=== PATIENT | female | born 1955 | race African-American/Black ===

== ENCOUNTER 2024-06-11 01:21 | Inpatient (IN) | payer OTHER, MEDICARE ==
[~2024-06-11] VITALS: Ht 167.6 cm; Wt 139.8 kg
[2024-06-11] VITALS (11 sets, daily range): BP systolic 105–157; BP diastolic 58–67; PULSE 61–99; RESP 12–24; TEMP 98.8–98.9; O2SAT 96–100
[~2024-06-11 01:21] MED LIST: ENAL20TA93; TRIA75TA11
--- NOTE | 2024-06-11 01:37 | ED.PDOC ---
History of Present Illness HPI Comments 68-year-old female with PMHx COPD brought in by EMS presents with a chief complaint of generalized weakness, fatigue, and shortness of breath at rest. Per EMS, family states that they believed that patient was unresponsive and gave her 0.5mg Narcan. Patient reports that she was just sleeping and did not want to be bothered. Patient also mentions that family wanted to "get rid of her and called 911". According to EMS, family reports that they felt patient was not at baseline and was unresponsive. Patient is A/Ox4. Patient is SOB but reports that she is at her baseline currently. 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 Hx Family History Family History: Reviewed,noncontributory to illness Social History Smoker: Non-Smoker Alcohol: Denies ETOH Use Drugs: Denies Drug Use Lives In: Home Constitutional: reports: fatigue, weakness; denies: chills, diaphoresis, fever, malaise, sweats, others EENTM: denies: blurred vision, double vision, ear bleeding, ear discharge, ear drainage, ear pain, ear ringing, eye pain, eye redness, hearing loss, mouth pain, mouth swelling, nasal discharge, nose bleeding, nose congestion, nose pain, photophobia, tearing, throat pain, throat swelling, voice changes, others Respiratory: reports: SOB at rest; denies: cough, hemoptysis, orthopnea, shortness of breath, SOB with excertion, stridor, wheezing, others Cardiovascular: denies: chest pain, dizzy spells, diaphoresis, Dyspnea on exertion, edema, irregular heart beat, left arm pain, lightheadedness, palpitations, PND, syncope, others Gastrointestinal: denies: abdomen distended, abdominal pain, blood streaked bowels, constipated, diarrhea, dysphagia, difficulty swallowing, hematemesis, melena, nausea, poor appetite, poor fluid intake, rectal bleeding, rectal pain, vomiting, others Genitourinary: denies: abnormal vagina bleeding, burning, dyspareunia, dysuria, flank pain, frequency, hematuria, incontinence, pain, , vagina discharge, urgency, others Neurological: denies: dizziness, fainting, headache, left sided numbness, left sided weakness, numbness, paresthesia, pre-existing deficit, right sided numbnes s, right sided weakness, seizure, speech problems, tingling, tremors, weakness, others Musculoskeletal: denies: back pain, gout, joint pain, joint swelling, muscle pain, muscle stiffness, neck pain, others Integumetry: denies: bruises, change in color, change in hair/nails, dryness, laceration, lesions, lumps, rash, wounds, others Allergic/Immunocompromised: denies: Difficulty Healing, Frequent Infections, Hives, Itching, others Hematologic/Lymphatic: denies: anemia, blood clots, easy bleeding, easy bruising, swollen glands, others Endocrine: denies: excessive hunger, excessive sweating, excessive thirst, excessive urination, flushing, intolerance to cold, intolerance to heat, unexplained weight gain, unexplained weight loss, others Psychiatric: denies: anxiety, bipolar disorder, depression, hopeless, panic disorder, schizophrenia, sleepless, suicidal, others All Other Systems: Reviewed and Negative Physical Exam General Appearance: No Apparent Distress, Normal HEENT: Normal ENT Inspection, Pharynx Normal, TMs Normal Neck: Full Range of Motion, Non-Tender, Normal, Normal Inspection Respiratory: Chest Non-Tender, Lungs Clear, No Accessory Muscle Use, No Respiratory Distress, Normal Breath Sounds Cardiovascular: No Edema, No JVD, No Murmur, No Gallop, Normal Peripheral Pulses, Regular Rate/Rhythm Breast Exam: Deferred Gastrointestinal: No Organomegaly, Non Tender, No Pulsatile Mass, Normal Bowel Sounds, Soft Genitalia: Deferred Pelvic: Deferred Rectal: Deferred Extremities: No calf tenderness, Normal capillary refill, Normal inspection, Normal range of motion, Non-tender, No pedal edema Musculoskeletal : Apperance: Normal Neurologic: Alert, social service director II-XII nml as Tested, No Motor Deficits, Normal Affect, Normal Mood, No Sensory Deficits Cerebellar Function: Normal Reflexes: Normal Skin: Dry, Normal Color, Warm Lymphatic: No Adenopathy Was a procedure done? Was a procedure done?: No Differential Dx Considerations may include: Differential diagnosis includes but is not limited to: asthma, pneumonia, congestive heart failure, pleural effusion, empyema, pulmonary embolus, and others X-Ray, Labs, Meds, VS Vital Signs Date Time Temp Pulse Resp B/P (MAP) Pulse Ox O2 Delivery O2 Flow Rate FiO2 06/11/24 02:33 60 182/90 Facial BiPAP Mask 40 06/11/24 02:15 28 100 Nasal Cannula* 6 44 06/11/24 02:09 197/96 06/11/24 01:59 98.9 70 18 195/96 (129) 98 98.9 06/11/24 01:33 98.1 69 14 167/133 (144) 100 06/11/24 01:28 67 Lab Test 06/11/24 02:13 06/11/24 02:10 Range/Units White Blood Count 4.2 L 4.4-10.8 10^3/uL Red Blood Count 3.61 L 4.0-5.20 10^6/uL Hemoglobin 10.3 L 12.2-16.2 g/dL Hematocrit 32.1 L 36.0-46.0 % Mean Corpuscular Volume 88.8 80.0-100.0 fL Mean Corpuscular Hemoglobin 28.5 28.0-32.0 pg Mean Corpuscular Hemoglobin Concent 32.1 32.0-36.0 g/dL Red Cell Distribution Width 13.3 11.8-14.3 % Platelet Count 231 140-450 10^3/uL Mean Platelet Volume 8.2 6.9-10.8 fL Neutrophils (%) (Auto) 65.4 37.0-80.0 % Lymphocytes (%) (Auto) 16.9 10.0-50.0 % Monocytes (%) (Auto) 14.9 H 0.0-12.0 % Eosinophils (%) (Auto) 1.9 0.0-7.0 % Basophils (%) (Auto) 0.9 0.0-2.0 % Neutrophils # (Auto) 2.8 1.6-8.6 10 ^3/uL Lymphocytes # (Auto) 0.7 0.4-5.4 10 ^3/uL Monocytes # (Auto) 0.6 0-1.3 10 ^3/uL Eosinophils # (Auto) 0.1 0-0.8 10 ^3/uL Basophils # (Auto) 0 0-0.2 10 ^3/uL Nucleated Red Blood Cells 0.1 % Sodium Level 138 136-145 mmol/L Potassium Level 3.9 3.5-5.1 mmol/L Chloride Level 90 L 98-107 mmol/L Carbon Dioxide Level > 40 *H 20-31 mmol/L Anion Gap 7.38674 5-15 Blood Urea Nitrogen 11 9-23 mg/dL Creatinine 0.69 0.550-1.02 mg/dL Glomerular Filtration Rate Calc 95 >90 mL/min BUN/Creatinine Ratio 15.9 10.0-20.0 Serum Glucose 109 H 74-106 mg/dL Calcium Level 10.0 8.7-10.4 mg/dL Magnesium Level 1.5 L 1.6-2.6 mg/dL Total Bilirubin 0.4 0.2-1.0 mg/dL Aspartate Amino Transferase (AST) 26 13-40 U/L Alanine Aminotransferase (ALT) 21 7-40 U/L Alkaline Phosphatase 120 H 46-116 U/L Troponin I High Sensitivity 12 </=34 ng/L B-Type Natriuretic Peptide Pending Total Protein 7.5 5.7-8.2 g/dL Albumin 4.3 3.2-4.8 g/dL Blood Gas Specimen Type Venous Blood Gas Sample Site Vbg - n/a Blood Gas Patient Temperature 37.0 Arterial Blood Date Drawn Raymond Test N/a Venous Blood pH 7.208 L 7.320-7.430 Venous Blood pCO2 at Patient Temp 155.0 *H 38.0-54.0 mmHg Venous Blood pO2 at Patient Temp 65.2 H 23.0-48.0 mmHg Venous Blood HCO3 60.3 H 22.0-29.0 mmol/L Venous Bld O2 Saturation (Measured) 90.3 H 60.0-85.0 % Venous Blood Base Excess 26.0 H -2.0-3.0 mmol/L Venous Blood Total Hemoglobin 11.4 L 12.0-16.0 g/dL Venous Blood Oxyhemoglobin 89.5 H 0.0-79.0 % Venous Blood Carboxyhemoglobin 0.2 L 0.5-1.5 % Venous Blood Methemoglobin 0.7 0.0-1.5 % Blood Gas Modality Nasal cannula FiO2 % 40.0 Blood Gas Critical Value Read Back Yes Blood Gas Notified Whom diego Tubbs Blood Gas Notified Time [id number] Blood Gas Notified By semaj Bruno Current Medications Medications (Trade) Dose Ordered Sig/Dontrell Route Start Time Stop Time Status Last Admin Albuterol (Ventolin Medneb) 5 mg ONCE ONCE [facility] 06/11/24 01:45 06/11/24 01:46 DC 06/11/24 02:15 Ipratropium [place] (Atrovent Medneb) 0.5 mg ONCE ONCE [facility] 06/11/24 01:45 06/11/24 01:46 DC 06/11/24 02:15 Prednisone 40 mg ONCE ONCE PO 06/11/24 01:45 06/11/24 01:46 DC 06/11/24 02:09 Hydralazine HCl (Apresoline Tablet) 50 mg ONCE ONCE PO 06/11/24 02:00 06/11/24 02:01 DC 06/11/24 02:09 Time of 1ST Reevaluation: 02:00 Reevaluation 1ST: Unchanged Time of 2ND Reevaluation: 03:31 Reevaluation 2ND: Unchanged Patient Education/Counseling: Diagnosis, Treatment, Prognosis Family Education/Counseling: No Family Present Departure 1 Departure Time of Disposition: 03:31 Impression: Primary Impression: Respiratory failure with hypoxia and hypercapnia Additional Impression: COPD with acute exacerbation Disposition: ADMITTED INPATIENT Admit to: Tele Condition: Guarded Critical Care Note Critical Care Time?: Yes (35 min-critical care time only) Critical care comment: Total critical care time: Approximately 36 minutes Due to a high probability of clinically significant, life threatening deterioration, the patient required my highest level of preparedness to interven e emergently and I personally spent this critical care time directly and personally managing the patient. This critical care time included obtaining a history; examining the patient; pulse oximetry; ordering and review of studies; arranging urgent treatment with development of a management plan; evaluation of patient's response to treatment; frequent reassessment; and, discussions with other providers. This critical care time was performed to assess and manage the high probability of imminent, life-threatening deterioration that could result in multi-organ failure. It was exclusive of separately billable procedures and treating other patients. Stability Stability form required: No Heart Score Heart Score: Heart Score Response (Comments) Value History Slightly Suspicious 0 EKG Normal 0 Age >65 2 Risk Factors 1 or 2 risk factors 1 Troponin Normal limit 0 Total 3 I personally scribed for DAVID DOMÍNGUEZ MD ([email or web address]) on 06/11/24 at 01:37. Electronically submitted by Jey Lux ([email or web address]). DAVID DOMÍNGUEZ MD Jun 11, 2024 01:37
[2024-06-11] MEDS: hydrALAZINE HCL 25 MG TAB PO ONE (02:09)
[2024-06-11] MEDS: predniSONE 20 MG TAB PO ONE (02:09)
[2024-06-11] MEDS: ALBUTEROL SULF 2.5 MG/0.5ML(0.5%) NEB SOLN HHN ONE (02:15)
[2024-06-11] MEDS: IPRATROPIUM BROM 0.5 MG/2.5ML INH SOL HHN ONE (02:15)
[2024-06-11 02:48] LABS: Basophils # (auto) 0 10 ^3/uL (0-0.2); Basophils % (auto) 0.9 % (0.0-2.0); Eosinophils # (auto) 0.1 10 ^3/uL (0-0.8); Eosinophils % (auto) 1.9 % (0.0-7.0); Hematocrit 32.1 % (36.0-46.0); Hemoglobin 10.3 g/dL (12.2-16.2); Lymphocytes # (auto) 0.7 10 ^3/uL (0.4-5.4); Lymphocytes % (auto) 16.9 % (10.0-50.0); Mean Corpuscular Hemoglobin 28.5 pg (28.0-32.0); Mean Corpuscular Hgb Conc. 32.1 g/dL (32.0-36.0); Mean Corpuscular Volume 88.8 fL (80.0-100.0); Monocytes # (auto) 0.6 10 ^3/uL (0-1.3); Monocytes % (auto) 14.9 % (0.0-12.0); Neutrophils # (auto) 2.8 10 ^3/uL (1.6-8.6); Neutrophils % (auto) 65.4 % (37.0-80.0); Nucleated Red Blood Cells % 0.1 %; Platelet Count (auto) 231 10^3/uL (140-450); Red Blood Cells 3.61 10^6/uL (4.0-5.20); Red Cell Distribution Width 13.3 % (11.8-14.3); White Blood Cell 4.2 10^3/uL (4.4-10.8)
[2024-06-11 03:00] LABS: Alanine Aminotransferase 21 U/L (7-40); Albumin 4.3 g/dL (3.2-4.8); Aspartate Aminotransferase 26 U/L (13-40); BUN/Creatinine Ratio 15.9 (10.0-20.0); Blood Urea Nitrogen 11 mg/dL (9-23); Potassium 3.9 mmol/L (3.5-5.1); Sodium 138 mmol/L (136-145)
[2024-06-11 03:01] LABS: Bilirubin, Total 0.4 mg/dL (0.2-1.0); Total Protein 7.5 g/dL (5.7-8.2)
[2024-06-11 03:06] LABS: Alkaline Phosphatase 120 U/L (46-116); Anion Gap 7.99999 (5-15); Chloride 90 mmol/L (98-107); Glucose 109 mg/dL (74-106); Magnesium 1.5 mg/dL (1.6-2.6)
[2024-06-11 03:07] LABS: Carbon Dioxide > 40 mmol/L (20-31)
--- NOTE | 2024-06-11 03:30 | DVH ---
Examination: CXRP Comparison: None. Technique: Frontal radiograph of the chest was obtained. Findings: Mild cardiomegaly with bilateral hilar congestion. Subtle blunting of the right costophre karina angle, suggestive mild right-sided pleural effusion. Changes of congestive cardiac failure. No evidence of pneumothorax. No acute osseous abnormality is seen. Impression: Mild cardiomegaly with bilateral hilar congestion. Subtle blunting of the right costoph renic angle, suggestive mild right-sided pleural effusion. Changes of congestive cardiac failure. N o evidence of pneumothorax. Electronically Signed 06/11/2024 03:29 Steven Beasley
[2024-06-11] MEDS: MAGNESIUM SULFATE 1GM/100ML 100 ML IV SCH (03:35)
[2024-06-11 04:03] LABS: Urine Bacteria None Seen /hpf (None Seen)
[2024-06-11 04:15] LABS: Urine Blood Negative /uL (Negative); Urine Clarity Clear (Clear); Urine Color Light-Yellow (Yellow); Urine Protein, UAD TRACE (Negative); Urine Specific Gravity 1.011 (1.001-1.035); Urine Squamous Epithelial Cell FEW /hpf (<5); Urine Urobilinogen Normal (Negative); Urine WBC 1 /hpf (0 - 5); Urine pH 6.5 (5.0-9.0)
[2024-06-11] MEDS ORDERED: NITROGLYCERIN 0.4 MG SL TAB SL PRN (04:15)
[2024-06-11] MEDS: levoFLOXacin 500MG 100 ML IV ONE (04:15)
[2024-06-11 04:25] LABS: Base Excess 13.2 mmol/L (-2.0-3.0)
--- NOTE | 2024-06-11 04:30 | DVHHPRES ---
History of Present Illness Resident Creating Document: MP GUTIERREZ RESIDENT History of Present Illness Patient is 68-year-old female with past medical history of Chronic obstructive pulmonary disease, hypertension, hyperlipidemia and CHF who was on hospice brought to the hospital by EMS for worsening mental status and shortness of breath. As per medical record, EMS was called around at 2:00 p.m. on 06/10/2024 for respiratory distress after patient took [place] five. EMS gave Narcan and mental status and respiratory distress improved. However later patient became more altered according to daughter and patient was brought to the hospital via EMS. During initial evaluation emergency department, given retention of CO2, patient is started on BiPAP, given steroid prednisolone 40 mg p.o. and IV magnesium. At the time of evaluation patient denied any other symptoms including chest pain, headache, fever, chills, sputum production, motor weakness, sensory deficits, abdominal pain, any other symptoms. Patient will be admitted to the hospital for worsening Chronic obstructive pulmonary disease exacerbation and elevated blood pressure. Home medication: Metoprolol, gabapentin, amlodipine, Lasix, [place], lisinopril. Dose of this medication are known. Request medical records. Past Medical History Chronic obstructive pulmonary disease, hypertension, hyperlipidemia, CHF Past Surgical History: None Family History: None Past Social History Not able to obtained. Review of Systems Review of Systems Patient complaining of mild shortness of breath, denying any other symptoms. Eyes: No Pain, No Vision change, No Conjunctivae inflammation, No Eyelid inflammation, No Other, No Redness ENT: No Ear pain, No Ear discharge, No Nose pain, No Nose discharge, No Nose congestion, No Mouth pain, No Mouth swelling, No Throat pain, No Throat swelling, No Other Cardiovascular: No Chest Pain, No Palpitations, No Orthopnea, No Paroxysmal Noc. Dyspnea, No Edema, No Lt Headedness, No Other Respiratory: No Cough, No Dry, Shortness of breath, No SOB with excertion, No Wheezing, No Hemoptysis, No Pleuritic Pain, No Sputum, No Other Gastrointestinal: No Nausea, No Vomiting, No Abdominal Pain, No Diarrhea, No Constipation, No Melena, No Hematochezia, No Other Genitourinary: No Dysuria, No Frequency, No Incontinence, No Hematuria, No Retention, No Other Musculoskeletal: No other, No neck pain, No shoulder pain, No arm pain, No back pain, No hand pain, No leg pain, No foot pain Skin: No Rash, No Lesions, No Jaundice, No Bruising, No Other Allergies: Coded Allergies: NO KNOWN ALLERGIES (Unverified , 12/21/09) Medications Current Medications Medications Dose Ordered Sig/Dontrell Route Start Time Stop Time Status Last Admin Dose Admin Nitroglycerin 0.4 mg Q5MINP PRN SL 06/11/24 04:15 Furosemide 40 mg DAILY IV 06/11/24 10:00 UNV Albuterol 2.5 mg Q6HR NEB 06/11/24 06:00 UNV Ipratropium Luke 0.5 mg Q6HR NEB 06/11/24 06:00 UNV Methylprednisolone Sodium Succinate 40 mg BID IV 06/11/24 10:00 UNV Levofloxacin/ Dextrose 150 ml @ 100 mls/hr DAILY IV 06/12/24 10:00 UNV Gabapentin 300 mg TID PO 06/11/24 06:00 UNV Lisinopril 10 mg DAILY PO 06/12/24 10:00 UNV Amlodipine Besylate 10 mg DAILY PO 06/12/24 10:00 UNV Exam Vital Signs Vital Signs Date Time Temp Pulse Resp B/P (MAP) Pulse Ox O2 Delivery O2 Flow Rate FiO2 06/11/24 04:00 66 18 154/51 (85) 97 06/11/24 03:43 Bi-Pap+ 0 40 40 06/11/24 01:59 98.9 98.9 Exam Patient is not in acute distress, morbidly obese. General Appearance: Cooperative. Well developed. Well nourished. NAD Head Exam: Normal inspection Neck Exam: Normal inspection. Non-tender. Normal alignment Pulmonary/Respiratory: Chest non-tender. Decreased air entry in bilateral lungs. Cardiovascular/Chest: Regular rate and rhythm. No murmurs. No JVD. Peripheral Pulses: 2+ Radial (R). 2+ Radial (L). 2+ Pedal (R). 2+ Pedal (L) Abdominal Exam: Normal bowel sounds. Soft. Nontender. No hepatospenomegaly. No masses Ankle Exam: Negative ankle edema Lower extremities: 2+ edema in bilateral lower extremity. Neuro/Mental Status: A&O x4. Coherent Thoughts/Psych: Normal thought pattern. Appropriate mood and affect. Good judgement and insight Appearance: In no acute distress Skin Exam: Normal inspection. Normal color. Warm. Dry Labs/Xrays Labs Test 06/11/24 03:29 06/11/24 03:00 06/11/24 02:13 06/11/24 02:10 Range/Units White Blood Count 4.2 L 4.4-10.8 10^3/uL Red Blood Count 3.61 L 4.0-5.20 10^6/uL Hemoglobin 10.3 L 12.2-16.2 g/dL Hematocrit 32.1 L 36.0-46.0 % Mean Corpuscular Volume 88.8 80.0-100.0 fL Mean Corpuscular Hemoglobin 28.5 28.0-32.0 pg Mean Corpuscular Hemoglobin Concent 32.1 32.0-36.0 g/dL Red Cell Distribution Width 13.3 11.8-14.3 % Platelet Count 231 140-450 10^3/uL Mean Platelet Volume 8.2 6.9-10.8 fL Neutrophils (%) (Auto) 65.4 37.0-80.0 % Lymphocytes (%) (Auto) 16.9 10.0-50.0 % Monocytes (%) (Auto) 14.9 H 0.0-12.0 % Eosinophils (%) (Auto) 1.9 0.0-7.0 % Basophils (%) (Auto) 0.9 0.0-2.0 % Neutrophils # (Auto) 2.8 1.6-8.6 10 ^3/uL Lymphocytes # (Auto) 0.7 0.4-5.4 10 ^3/uL Monocytes # (Auto) 0.6 0-1.3 10 ^3/uL Eosinophils # (Auto) 0.1 0-0.8 10 ^3/uL Basophils # (Auto) 0 0-0.2 10 ^3/uL Nucleated Red Blood Cells 0.1 % Sodium Level 138 136-145 mmol/L Potassium Level 3.9 3.5-5.1 mmol/L Chloride Level 90 L 98-107 mmol/L Carbon Dioxide Level > 40 *H 20-31 mmol/L Anion Gap 7.21383 5-15 Blood Urea Nitrogen 11 9-23 mg/dL Creatinine 0.69 0.550-1.02 mg/dL Glomerular Filtration Rate Calc 95 >90 mL/min BUN/Creatinine Ratio 15.9 10.0-20.0 Serum Glucose 109 H 74-106 mg/dL Calcium Level 10.0 8.7-10.4 mg/dL Magnesium Level 1.5 L 1.6-2.6 mg/dL Total Bilirubin 0.4 0.2-1.0 mg/dL Aspartate Amino Transferase (AST) 26 13-40 U/L Alanine Aminotransferase (ALT) 21 7-40 U/L Alkaline Phosphatase 120 H 46-116 U/L B-Type Natriuretic Peptide 87.62 0-100 pg/mL Total Protein 7.5 5.7-8.2 g/dL Albumin 4.3 3.2-4.8 g/dL Blood Gas Specimen Type Venous Blood Gas Sample Site Vbg - n/a Blood Gas Patient Temperature 37.0 Arterial Blood Date Drawn Raymond Test N/a Venous Blood pH 7.208 L 7.320-7.430 Venous Blood pCO2 at Patient Temp 155.0 *H 38.0-54.0 mmHg Venous Blood pO2 at Patient Temp 65.2 H 23.0-48.0 mmHg Venous Blood HCO3 60.3 H 22.0-29.0 mmol/L Venous Bld O2 Saturation (Measured) 90.3 H 60.0-85.0 % Venous Blood Base Excess 26.0 H -2.0-3.0 mmol/L Venous Blood Total Hemoglobin 11.4 L 12.0-16.0 g/dL Venous Blood Oxyhemoglobin 89.5 H 0.0-79.0 % Venous Blood Carboxyhemoglobin 0.2 L 0.5-1.5 % Venous Blood Methemoglobin 0.7 0.0-1.5 % Blood Gas Modality Nasal cannula FiO2 % 40.0 Blood Gas Critical Value Read Back Yes Blood Gas Notified Whom diego Tubbs Blood Gas Notified Time [id number] Blood Gas Notified By semaj Bruno Assessment/Plan Assessment/Plan Acute respiratory hypercapnic respiratory failure Chronic obstructive pulmonary disease exacerbation Acute on chronic systolic versus diastolic heart failure Mild right-sided pleural effusion Morbid obesity Respiratory acidosis Hospice revocation Plan/recommendation -continue to monitor CO2 level via ABG for Chronic obstructive pulmonary disease exacerbation. Currently on BiPAP: IPAP 20, EPAP five, backup respiratory rate at 12. -scheduled nebulization with ipratropium bromide and albuterol every 6 hour. -empiric antibiotic with ceftriaxone. Follow with sputum Gram stain and culture with susceptibility testing. -IV magnesium 2 g given by ED physician. -echocardiogram is pending. -IV Lasix 40 mg once daily for pulmonary vascular congestion with underlying heart failure. -blood pressure management: Initiated amlodipine 10 mg p.o. daily, lisinopril 10 mg p.o. daily. -pending flu and COVID test. Goals of care discussed greater than 22 minutes, full code. Plan discussed with Dr. Sharma. Plan discussed with: Patient, Other (RN) My Orders Orders - MP GUTIERREZ RESIDENT Procedure Category Date Status Time Admit ADMIT 06/11/24 Transmitted 04:06 Nitroglycerin PHA 06/11/24 In Process Sublingual (Ntrostat 04:15 Oxygen By Nasal RT 06/11/24 Transmitted Cannula 04:06 Medical Laboratory Assistant For [facility] 06/11/24 In Process 24 Hours 04:06 Emergency Dysrhythmia [facility] 06/11/24 In Process Protocol 04:06 Furosemide Injection PHA 06/11/24 Logged (Lasix Injection) 04:15 Furosemide Injection PHA 06/11/24 Logged (Lasix Injection) 10:00 Albuterol Medneb PHA 06/11/24 Logged (Ventolin Medneb) 06:00 Ipratropium Medneb PHA 06/11/24 Logged (Atrovent Medneb) 06:00 Methylprednisolone PHA 06/11/24 Transmitted Sod Succ (Solu Medrol 10:00 Levofloxacin Levaquin PHA 06/11/24 Transmitted 04:15 Levofloxacin Levaquin PHA 06/12/24 Transmitted 10:00 Echo 2d Mode Cardiac US 06/11/24 Logged DOP 04:08 Bilat Lower Dvt US 06/11/24 Logged 04:08 Gabapentin Capsule PHA 06/11/24 Transmitted (Neurontin Capsule) 06:00 Lisinopril Tablet PHA 06/11/24 Transmitted (Zestril Tablet) 04:15 Lisinopril Tablet PHA 06/12/24 Transmitted (Zestril Tablet) 10:00 Amlodipine Tablet PHA 06/11/24 Transmitted (Norvasc Tablet) 04:15 Amlodipine Tablet PHA 06/12/24 Transmitted (Norvasc Tablet) 10:00 Rapid Influenza A&B LAB 06/11/24 Transmitted 04:19 Covid19 Antigen [place] [facility] 06/11/24 Transmitted Thyroid Stimulating LAB 06/11/24 Transmitted Hormone 04:19 Date of Service: Jun 11, 2024 Billing Provider: CRISTOBAL SHARMA MD Common Visit Codes: 41126-OQHVSQN INP/OBS CARE (HIGH) Secondary Visit Codes: 81526-[id number] CARE PLAN 30 MINUTES MP GUTIERREZ RESIDENT Jun 11, 2024 04:30 CRISTOBAL SHARMA MD Jun 11, 2024 11:17
[2024-06-11] MEDS: FUROSEMIDE 40 MG/4 ML VIAL IV ONE (05:34)
[2024-06-11] MEDS: LISINOPRIL 5 MG TAB PO ONE (05:35)
[2024-06-11] MEDS: amLODIPine BESYLATE 5 MG TAB PO ONE (05:36)
[2024-06-11] MEDS: NEOMYCIN-POLYMY-DEXAMETH 0.1% OPTH(EYE) OINT 3.5GM EACHEYE ONE (05:51)
[2024-06-11] MEDS: GABAPENTIN 300 MG CAP PO SCH ×2 (06:29→23:46)
[2024-06-11] MEDS: cefTRIAXone 1GM/50ML D5W 50 ML IV ONE (06:39)
--- NOTE | 2024-06-11 06:44 | ECG ---
[facility] Test Date: 2024-06-11 Test Time: 01:28:10 Pat Name: LINDA SANDHU Department: ER Room: [address] [place] [address] Gender: F Chemical Unit Operator: : [id number] Requested By: DAVID DOMÍNGUEZ Order Number: [id number] Reading MD: Martin Hawkins Measurements Intervals [place] Rate: 67 P: 83 [place]: 185 QRS: 53 QRSD: 96 T: 63 QT: 417 QTc: 441 Interpretive Statements Sinus rhythm Baseline wander in lead(s) I Electronically Signed On 06-11-2024 8:41:04 PST by Martin Hawkins Please click the below link to view image of tracing.
[2024-06-11] MEDS: IPRATROPIUM BROM 0.5 MG/2.5ML INH SOL NEB SCH (07:08)
[2024-06-11] MEDS: ALBUTEROL SULF 2.5 MG/0.5ML(0.5%) NEB SOLN NEB SCH (07:08)
[2024-06-11 07:52] LABS: Base Excess 20.5 mmol/L (-2.0-3.0)
--- NOTE | 2024-06-11 09:13 | DVH ---
Bilateral lower extremity venous duplex Clinical History: dvt Comparison: None Findings: Duplex Doppler evaluation of the deep venous systems of both lower extremities from the common femora l veins to the popliteal veins including color Doppler and spectral/pulsed waveform analysis was perf ormed. RIGHT SIDE: The common femoral vein demonstrates appropriate compressibility and waveform variability. There is compressibility/patency of the great saphenous vein at the proximal thigh. The femoral vein demonstrates appropriate compressibility and waveform variability. The deep femoral vein demonstrates appropriate compressibility and waveform variability. The popliteal vein demonstrates appropriate compressibility and waveform variability. There is normal compressibility at the tibioperoneal trunk. LEFT SIDE: The common femoral vein demonstrates appropriate compressibility and waveform variability. There is compressibility/patency of the great saphenous vein at the proximal thigh. The visualized femoral vein demonstrates appropriate compressibility and waveform variability. Midpor tion not visualized due to patient positioning. The deep femoral vein demonstrates appropriate compressibility and waveform variability. The popliteal vein demonstrates appropriate compressibility and waveform variability. There is normal compressibility at the tibioperoneal trunk. Impression: 1. No deep venous thrombosis in the bilateral lower extremities.
[2024-06-11] MEDS: methylPREDNISolone SOD SUCC 40 MG/ML VL IV SCH ×2 (09:39→23:46)
[2024-06-11 11:36] LABS: COVID19 ANTIGEN SOFIA FIA NEGATIVE (NEGATIVE); Rapid Influenza A Negative (Negative); Rapid Influenza B Negative (Negative)
--- NOTE | 2024-06-11 12:02 | DVHSR ---
APPROVED REPORT EXAM: Two-dimensional and M-mode echocardiogram with Doppler and color Doppler. Blood Pressure: 118/67 mmHg INDICATION CHF RISK FACTORS Height: 66, Weight: 250 DIMENSIONS LVDd4.0 (3.8-5.7cm)LA (2D) (1.9-4.0cm)Aortic Root3.5 (2.0-3.7cm) LVDs2.8 (2.5-4.0cm)LA (MM) (1.9-4.0cm)Aortic Cusp Exc1.7 (1.5-2.0cm) EF (%) 56.0 (55-70%)Rt. Atrium (1.9-4.0cm)Asc. Aorta cm Mitral Valve MitralMitral Stenosis E wave0.78m/sMV Mean GR.mmHg A wave1.17m/sMV Peak GR.mmHg E/A ratio0.72D MVAcm2 DECEL [id number] 1/2 Tim[place] Aortic Valve Aortic ValveAortic Stenosis V11.25m/Abiel Mean GR.5mmHg V21.52m/Abiel Peak GR.9mmHg LVOT Diameter1.9 (1.8-2.4cm)Doppler AVA2.33cm2 Tricuspid Valve TR Velocity2.75m/s [id number] LEFT VENTRICLE The left ventricle is of normal size. Ejection fraction is likely normal. Endocardial definition is poor and is inadequate to assess for wall motion abnormalities. There is evidence of impaired relax ation of the left ventricle. RIGHT VENTRICLE The right ventricle is not well visualized. ATRIA The left atrium is of normal size. Right atrium is not well visualized. MITRAL VALVE Not well visualized. There is no evidence of significant regurgitation or stenosis. PULMONIC VALVE Not well visualized. TRICUSPID VALVE Not well visualized. PA systolic pressure is estimated at 35 mm Hg. AORTIC VALVE Not well visualized. There is no evidence of significant stenosis or regurgitation. GREAT VESSELS Aortic root is of normal size. PERICARDIAL EFFUSION No significant pericardial effusion. IVC is of normal size and collapses normally with inspiration. Other Information Technically limited study due to body habitus and patient position. Conclusion The study is very technically difficult. The left ventricle is of normal size and systolic function. Endocardial definition is suboptimal to evaluate for wall motion abnormalities. The right ventricle is not very well visualized. It is likely of normal size and systolic function. No hemodynamically significant valvular disease. PA systolic pressure is estimated at 35 mm Hg. No evidence of pericardial effusion.
--- NOTE | 2024-06-11 12:56 | DVHPN2 ---
Subjective Patient denies any symptoms at this time. Reviewed: Care Plan, H&P, Labs, Medications Changes from previous H/P or p: No Changes General: Per HPI Objective Vitals Vital Signs Date Time Temp Pulse Resp B/P (MAP) Pulse Ox O2 Delivery O2 Flow Rate FiO2 06/11/24 12:00 81 06/11/24 11:52 105/63 97 Facial BiPAP Mask 35 06/11/24 07:00 24 06/11/24 04:51 98.9 98.9 06/11/24 03:43 0 Intake/Output Intake and Output 06/11/24 07:00 Intake Total 200 ml Balance 200 ml Intake IV Total 200 ml General Appearance: Alert, Oriented X3, Cooperative, No acute distress, Other (Morbidly obese) HEENT: Atraumatic, PERRLA Cardiovascular: Normal S1, Normal S2 Abdomen: Normal bowel sounds, Soft, No tenderness Genitourinary: No Apparent Abnormalities Back: Flank Tenderness, Midline Tenderness Neuro: Normal gait, Normal speech Psych/Mental Status: Mental status NL, Mood NL Medications Current Medications Medications Dose Ordered Sig/Dontrell Route Start Time Stop Time Status Last Admin Dose Admin Nitroglycerin 0.4 mg Q5MINP PRN SL 06/11/24 04:15 Furosemide 40 mg DAILY IV 06/12/24 10:00 Albuterol 2.5 mg Q6HR NEB 06/11/24 06:00 06/11/24 11:52 2.5 MG Ipratropium [place] 0.5 mg Q6HR NEB 06/11/24 06:00 06/11/24 11:52 0.5 MG Methylprednisolone Sodium Succinate 40 mg BID IV 06/11/24 10:00 06/11/24 09:39 40 MG Gabapentin 300 mg TID PO 06/11/24 06:00 06/11/24 06:29 300 MG Lisinopril 10 mg DAILY PO 06/12/24 10:00 Amlodipine Besylate 10 mg DAILY PO 06/12/24 10:00 Ceftriaxone Sodium 50 ml @ 100 mls/hr DAILY@0730 IV 06/12/24 07:30 Laboratory Results Laboratory Tests 06/11/24 02:13 Chemistry Test 06/11/24 02:13 Albumin 4.3 g/dL (3.2-4.8) Calcium Level 10.0 mg/dL (8.7-10.4) Magnesium Level 1.5 mg/dL (1.6-2.6) L Total Protein 7.5 g/dL (5.7-8.2) Cardiac Markers Test 06/11/24 02:13 B-Type Natriuretic Peptide 87.62 pg/mL (0-100) LFT Test 06/11/24 02:13 Alanine Aminotransferase (ALT) 21 U/L (7-40) Alkaline Phosphatase 120 U/L (46-116) H Aspartate Amino Transferase (AST) 26 U/L (13-40) Total Bilirubin 0.4 mg/dL (0.2-1.0) HgA1c, TSH Test 06/11/24 03:29 Thyroid Stimulating Hormone (TSH) 0.30 uIU/mL (0.55-4.78) L Urinalysis Test 06/11/24 03:00 Urine Color Light-yellow (Yellow) Urine Clarity Clear (Clear) Urine pH 6.5 (5.0-9.0) Urine Specific [place] 1.011 (1.001-1.035) Urine Protein Trace (Negative) H Urine Ketones Negative (Negative) Urine Blood Negative /uL (Negative) Urine Nitrite Negative (Negative) Urine Bilirubin Negative (Negative) Urine Urobilinogen Normal mg/dL (Negative) Urine Leukocyte Esterase Negative /uL (Negative) Urine RBC 1 /hpf (0 - 4) Urine WBC 1 /hpf (0 - 5) Urine Squamous Epithelial Cells Few /hpf (<5) Urine Bacteria None seen /hpf (None Seen) Urine Glucose Normal mg/dL (Normal) Blood Gas Results Test 06/11/24 02:10 06/11/24 04:00 06/11/24 07:39 FiO2 % 40.0 40.0 40.0 Arterial Blood pH 7.352 (7.350-7.450) 7.393 (7.350-7.450) Labs and/or images reviewed: Labs reviewed by me, Image(s) reviewed by me Assessment/Plan Assessment/Plan Impression: -acute hypercarbic respiratory failure -metabolic/toxic encephalopathy secondary to prescribed narcotics -COPD with exacerbation -morbid obesity -acute on chronic diastolic heart failure -primary hypertension Plan: -patient awake and following commands. Use BiPAP p.r.n. and at nighttime -continue pain management -echocardiogram: Results reviewed -IV diuresis -bronchodilators -magnesium infusion -repeat labs in a.m. Total time spent with patient discussing and formulating plan of care: 35 minutes. This medical document was created using an electronic medical record system with [employer] dictation system. Although this document has been carefully reviewed, there may still be some phonetic and typographical errors. These areas are purely typographical due to imperfections of the software programs, and do not reflect any compromise in the patient's medical care. Plan discussed with: Patient, Spouse, Other (RN) My Orders Orders - NAV ARMENDARIZ NP Procedure Category Date Status Time Cardiac DIET 06/11/24 Transmitted Diet-2gna,Lofat,Lochol Lunch BIPAP RT 06/11/24 Logged 12:45 Date of Service: Jun 11, 2024 Billing Provider: NAV ARMENDARIZ NP Common Visit Codes: [id number] INP/OBS CARE(HIGH) NAV ARMENDARIZ NP Jun 11, 2024 12:56
[2024-06-11] MEDS: MAGNESIUM SULFATE 1GM/100ML 100 ML IV ONE (14:31)
[2024-06-11] MEDS ORDERED: LABETALOL HCL 20 MG/4 ML VL IV PRN (21:00)
[2024-06-12] VITALS (20 sets, daily range): BP systolic 131–172; BP diastolic 62–83; PULSE 76–120; RESP 18–22; TEMP 98–98.5; O2SAT 10–100
[2024-06-12] MEDS: cefTRIAXone 1GM/50ML D5W 50 ML IV SCH (06:39)
[2024-06-12 07:37] LABS: Potassium 3.5 mmol/L (3.5-5.1); Sodium 136 mmol/L (136-145)
[2024-06-12 07:38] LABS: Calcium 10.3 mg/dL (8.7-10.4)
[2024-06-12 07:43] LABS: BUN/Creatinine Ratio 13.9 (10.0-20.0); Blood Urea Nitrogen 11 mg/dL (9-23); Magnesium 1.8 mg/dL (1.6-2.6)
[2024-06-12 08:07] LABS: Chloride 88 mmol/L (98-107)
[2024-06-12 08:09] LABS: Anion Gap 7.99999 (5-15); Carbon Dioxide > 40 mmol/L (20-31); Glucose 159 mg/dL (74-106)
[2024-06-12 08:52] LABS: Base Excess 16.7 mmol/L (-2.0-3.0)
[2024-06-12] MEDS: FUROSEMIDE 40 MG/4 ML VIAL IV SCH (09:51)
[2024-06-12] MEDS: amLODIPine BESYLATE 5 MG TAB PO SCH (09:52)
[2024-06-12] MEDS: LISINOPRIL 5 MG TAB PO SCH (09:52)
[2024-06-12] MEDS ORDERED: levoFLOXacin 750MG 150 ML IV SCH (10:00)
--- NOTE | 2024-06-12 10:14 | DVH ---
CHEST RADIOGRAPH Indication: chf Technique: Single frontal view of the chest was obtained COMPARISON: XY CHEST PORTABLE on DOS: 06/11/24 FINDINGS: Lines and Tubes: Tubing overlying the left lateral chest could be external to the patient or represe nt a TECHNICAL REPORT WRITER shunt catheter. Lungs: Mild diffuse interstitial prominence with mild patchy perihilar opacities. Pleura: There is haziness /indistinctness at the right costophrenic sulcus. No pneumothorax. Cardiomediastinal contours: Mild stable cardiomegaly. Bones: Degenerative changes at the AC joints. No evidence of acute osseous abnormalities. IMPRESSION: Findings are similar from 06/11/2024 and suggest mild pulmonary edema. Question a small right pleural effusion.
--- NOTE | 2024-06-12 14:41 | DVHPN2 ---
Subjective Patient denies any symptoms at this time. Reviewed: Care Plan, H&P, Labs, Medications Changes from previous H/P or p: No Changes General: Per HPI Objective Vitals Vital Signs Date Time Temp Pulse Resp B/P (MAP) Pulse Ox O2 Delivery O2 Flow Rate FiO2 06/12/24 12:59 94 Nasal Cannula* 2 28 06/12/24 12:43 98 22 06/12/24 09:52 180/72 06/12/24 01:00 98.4 98.4 Intake/Output Intake and Output 06/12/24 07:00 Intake Total 250 ml Output Total 2600 ml Balance -2350 ml Intake Oral 250 ml Output Urine Total 2600 ml # Voids 1 # Bowel Movements 1 General Appearance: Alert, Oriented X3, Cooperative, No acute distress, Other (Morbidly obese) HEENT: Atraumatic, PERRLA Cardiovascular: Normal S1, Normal S2 Abdomen: Normal bowel sounds, Soft, No tenderness Genitourinary: No Apparent Abnormalities Back: Flank Tenderness, Midline Tenderness Neuro: Normal gait, Normal speech Skin: Dry, Intact Psych/Mental Status: Mental status NL, Mood NL Medications Current Medications Medications Dose Ordered Sig/Dontrell Route Start Time Stop Time Status Last Admin Dose Admin Nitroglycerin 0.4 mg Q5MINP PRN SL 06/11/24 04:15 Furosemide 40 mg DAILY IV 06/12/24 10:00 06/12/24 09:51 40 MG Albuterol 2.5 mg Q6HR NEB 06/11/24 06:00 06/12/24 12:35 2.5 MG Ipratropium [place] 0.5 mg Q6HR NEB 06/11/24 06:00 06/12/24 12:35 0.5 MG Lisinopril 10 mg DAILY PO 06/12/24 10:00 06/12/24 09:52 10 MG Amlodipine Besylate 10 mg DAILY PO 06/12/24 10:00 06/12/24 09:52 10 MG Ceftriaxone Sodium 50 ml @ 100 mls/hr DAILY@0730 IV 06/12/24 07:30 06/12/24 06:39 100 MLS/HR Labetalol HCl 10 mg Q2HPRN PRN IV 06/11/24 21:00 Gabapentin 300 mg TID PO 06/12/24 00:00 06/12/24 06:38 300 MG Methylprednisolone Sodium Succinate 40 mg BID IV 06/12/24 00:00 06/12/24 09:51 40 MG Laboratory Results Laboratory Tests 06/11/24 02:13 06/12/24 06:55 Chemistry Test 06/12/24 06:55 Calcium Level 10.3 mg/dL (8.7-10.4) Magnesium Level 1.8 mg/dL (1.6-2.6) Urinalysis Test 06/11/24 03:00 Urine Color Light-yellow (Yellow) Urine Clarity Clear (Clear) Urine pH 6.5 (5.0-9.0) Urine Specific [place] 1.011 (1.001-1.035) Urine Protein Trace (Negative) H Urine Ketones Negative (Negative) Urine Blood Negative /uL (Negative) Urine Nitrite Negative (Negative) Urine Bilirubin Negative (Negative) Urine Urobilinogen Normal mg/dL (Negative) Urine Leukocyte Esterase Negative /uL (Negative) Urine RBC 1 /hpf (0 - 4) Urine WBC 1 /hpf (0 - 5) Urine Squamous Epithelial Cells Few /hpf (<5) Urine Bacteria None seen /hpf (None Seen) Urine Glucose Normal mg/dL (Normal) Blood Gas Results Test 06/12/24 08:41 Arterial Blood pH 7.502 (7.350-7.450) FiO2 % 32.0 Labs and/or images reviewed: Labs reviewed by me, Image(s) reviewed by me Assessment/Plan Assessment/Plan Impression: -acute hypercarbic respiratory failure -metabolic/toxic encephalopathy secondary to prescribed narcotics -COPD with exacerbation -morbid obesity -acute on chronic diastolic heart failure -primary hypertension Plan: Events: Repeat ABG with metabolic alkalosis now. Patient was alert and oriented. Long discussion made with the patient's plan of care. She states that she does not want to go back on hospice. -social service consultation for PCP and further discharge planning -room air ABG -continue pain management -echocardiogram: Results reviewed -IV diuresis -bronchodilators -reassess for discharge in am Total time spent with patient discussing and formulating plan of care: 35 minutes. This medical document was created using an electronic medical record system with [employer] system. Although this document has been carefully reviewed, there may still be some phonetic and typographical errors. These areas are purely typographical due to imperfections of the software programs, and do not reflect any compromise in the patient's medical care. Plan discussed with: Patient, Other (RN) My Orders Orders - NAV ARMENDARIZ NP Procedure Category Date Status Time Abg W/ Co-Ox RT 06/12/24 Logged 08:06 Chest Xray 1 View XY 06/12/24 Resulted 08:06 Date of Service: Jun 12, 2024 Billing Provider: NAV ARMENDARIZ NP Common Visit Codes: [id number] INP/OBS CARE(HIGH) NAV ARMENDARIZ NP Jun 12, 2024 14:41
[2024-06-12 15:56] LABS: Base Excess 13.8 mmol/L (-2.0-3.0)
[2024-06-13] VITALS (13 sets, daily range): BP systolic 119–157; BP diastolic 51–76; PULSE 71–95; RESP 16–35; TEMP 97–98.6; O2SAT 95–100
--- NOTE | 2024-06-13 16:20 | DVHDS2 ---
Discharge Summary Date of Admission Jun 11, 2024 at 04:06 Date of Discharge: Jun 13, 2024 Admitting Diagnosis Acute hypercarbic respiratory failure Labs/Diagnostic Data: Laboratory Results Test 06/12/24 15:43 06/12/24 08:41 06/12/24 06:55 06/11/24 10:00 Blood Gas Specimen Type Arterial Blood Gas Sample Site Right radial Blood Gas Patient Temperature 37.0 Arterial Blood Date Drawn [id number] Arterial Blood pH 7.521 (7.350-7.450) Arterial Blood Partial Pressure CO2 47.9 mmHg (32.0-45.0) Arterial Blood Partial Pressure O2 45.1 mmHg (83.0-108.0) Arterial Blood HCO3 38.3 mmol/L (21.0-28.0) Arterial Blood Oxygen Saturation 83.0 % (94.0-98.0) Arterial Blood Base Excess 13.8 mmol/L (-2.0-3.0) Arterial Blood Oxyhemoglobin 82.5 % (94.0-98.0) Arterial Blood Carboxyhemoglobin 0.3 % (0.5-1.5) Arterial Blood Methemoglobin 0.3 % (0.0-1.5) Raymond Test Yes Blood Gas Total Hemoglobin 11.40 g/dL (12.0-16.0) Blood Gas Modality Room air FiO2 % 21.0 Blood Gas Critical Value Read Back Yes Blood Gas Notified Whom shad Armendariz np Blood Gas Notified Time [id number] Blood Gas Notified By michael Marrero rrt Blood Gas Liter Flow 2.00 Sodium Level 136 mmol/L (136-145) Potassium Level 3.5 mmol/L (3.5-5.1) Chloride Level 88 mmol/L (98-107) Carbon Dioxide Level > 40 mmol/L (20-31) Anion Gap 7.35168 (5-15) Blood Urea Nitrogen 11 mg/dL (9-23) Creatinine 0.79 mg/dL (0.550-1.02) Glomerular Filtration Rate Calc 82 mL/min (>90) BUN/Creatinine Ratio 13.9 (10.0-20.0) Serum Glucose 159 mg/dL (74-106) Calcium Level 10.3 mg/dL (8.7-10.4) Magnesium Level 1.8 mg/dL (1.6-2.6) Influenza Type A Antigen Negative (Negative) Influenza Type B Antigen Negative (Negative) SARS-CoV-2 Antigen (Rapid) Negative (NEGATIVE) Test 06/11/24 07:39 06/11/24 04:00 06/11/24 03:29 06/11/24 03:00 Blood Gas Set Respiration Rate 16.0 Blood Gas EPAP 6 Blood Gas IPAP 22 Blood Gas Spontaneous Rate 31 Blood Gas Spontaneous Tidal Volume 539 Bl Gas Inspiratory/Expiratory Ratio 1:3 Troponin I High Sensitivity 13 ng/L (</=34) Thyroid Stimulating Hormone (TSH) 0.30 uIU/mL (0.55-4.78) Urine Color Light-yellow (Yellow) Urine Clarity Clear (Clear) Urine pH 6.5 (5.0-9.0) Urine Specific [place] 1.011 (1.001-1.035) Urine Protein Trace (Negative) Urine Ketones Negative (Negative) Urine Blood Negative /uL (Negative) Urine Nitrite Negative (Negative) Urine Bilirubin Negative (Negative) Urine Urobilinogen Normal mg/dL (Negative) Urine Leukocyte Esterase Negative /uL (Negative) Urine RBC 1 /hpf (0 - 4) Urine WBC 1 /hpf (0 - 5) Urine Squamous Epithelial Cells Few /hpf (<5) Urine Bacteria None seen /hpf (None Seen) Urine Glucose Normal mg/dL (Normal) Test 06/11/24 02:13 06/11/24 02:10 White Blood Count 4.2 10^3/uL (4.4-10.8) Red Blood Count 3.61 10^6/uL (4.0-5.20) Hemoglobin 10.3 g/dL (12.2-16.2) Hematocrit 32.1 % (36.0-46.0) Mean Corpuscular Volume 88.8 fL (80.0-100.0) Mean Corpuscular Hemoglobin 28.5 pg (28.0-32.0) Mean Corpuscular Hemoglobin Concent 32.1 g/dL (32.0-36.0) Red Cell Distribution Width 13.3 % (11.8-14.3) Platelet Count 231 10^3/uL (140-450) Mean Platelet Volume 8.2 fL (6.9-10.8) Neutrophils (%) (Auto) 65.4 % (37.0-80.0) Lymphocytes (%) (Auto) 16.9 % (10.0-50.0) Monocytes (%) (Auto) 14.9 % (0.0-12.0) Eosinophils (%) (Auto) 1.9 % (0.0-7.0) Basophils (%) (Auto) 0.9 % (0.0-2.0) Neutrophils # (Auto) 2.8 10 ^3/uL (1.6-8.6) Lymphocytes # (Auto) 0.7 10 ^3/uL (0.4-5.4) Monocytes # (Auto) 0.6 10 ^3/uL (0-1.3) Eosinophils # (Auto) 0.1 10 ^3/uL (0-0.8) Basophils # (Auto) 0 10 ^3/uL (0-0.2) Nucleated Red Blood Cells 0.1 % Total Bilirubin 0.4 mg/dL (0.2-1.0) Aspartate Amino Transferase (AST) 26 U/L (13-40) Alanine Aminotransferase (ALT) 21 U/L (7-40) Alkaline Phosphatase 120 U/L (46-116) B-Type Natriuretic Peptide 87.62 pg/mL (0-100) Total Protein 7.5 g/dL (5.7-8.2) Albumin 4.3 g/dL (3.2-4.8) Venous Blood pH 7.208 (7.320-7.430) Venous Blood pCO2 at Patient Temp 155.0 mmHg (38.0-54.0) Venous Blood pO2 at Patient Temp 65.2 mmHg (23.0-48.0) Venous Blood HCO3 60.3 mmol/L (22.0-29.0) Venous Bld O2 Saturation (Measured) 90.3 % (60.0-85.0) Venous Blood Base Excess 26.0 mmol/L (-2.0-3.0) Venous Blood Total Hemoglobin 11.4 g/dL (12.0-16.0) Venous Blood Oxyhemoglobin 89.5 % (0.0-79.0) Venous Blood Carboxyhemoglobin 0.2 % (0.5-1.5) Venous Blood Methemoglobin 0.7 % (0.0-1.5) Other Laboratory Tests 06/12/24 06:55 06/11/24 02:13 Brief Hx & Hospital Course: History of Present Illness Patient is 68-year-old female with past medical history of Chronic obstructive pulmonary disease, hypertension, hyperlipidemia and CHF who was on hospice brought to the hospital by EMS for worsening mental status and shortness of breath. As per medical record, EMS was called around at 2:00 p.m. on 06/10/2024 for respiratory distress after patient took [place] five. EMS gave Narcan and mental status and respiratory distress improved. However later patient became more altered according to daughter and patient was brought to the hospital via EMS. During initial evaluation emergency department, given retention of CO2, patient is started on BiPAP, given steroid prednisolone 40 mg p.o. and IV magnesium. At the time of evaluation patient denied any other symptoms including chest pain, headache, fever, chills, sputum production, motor weakness, sensory deficits, abdominal pain, any other symptoms. Patient will be admitted to the hospital for worsening Chronic obstructive pulmonary disease exacerbation and elevated blood pressure. Course of hospitalization: Patient was mentation improved after being placed on BiPAP. Patient was now alert and oriented x4, on nasal cannula at 2 liters/minute. Long discussion was made with the patient regarding her medical history, which includes with the patient currently being on hospice services. The patient states that she does not want to be on hospice anymore and wants medical treatment for her comorbidities. Social service consultation was placed for assistance with choosing a PCP. Patient also will need home O2, for which she qualifies with noted room air ABG. Patient was CO2 his within normal limits now. Patient will be discharged home, with follow up with the discharge Clinic. DME including will include home O2, wheelchair, as well as bedside commode. Reviewing the patient's medications with her, she states that she currently takes metoprolol tartrate, Lasix, as well as one of the medication for blood pressure. She also reports that she has albuterol rescue inhalers. Patient will be discharged home with continued steroid use including prednisone 40 mg p.o. daily as well as Symbicort one puff twice a day. She was agreeable with discharge plan. All questions answered. Physical examination General: Alert and Oriented x3. No acute distress. Well-nourished. Obese Eyes: EOMI. Anicteric. HENT: Moist mucous membranes. Lungs: Clear to auscultation bilaterally. No accessory muscle use. Cardiovascular: Regular rate and rhythm. No murmur. No JVD. Abdomen: Soft, non-tender and non-distended. No palpable masses. Extremities: No edema. Non-tender. Skin: No rashes or lesions. Warm. Neurologic: No focal neurological deficits. CN II-XII grossly intact, but not individually tested. Psychiatric: Cooperative. Appropriate mood and affect. Total time spent with patient discussing and formulating plan of care: 35 minutes. This medical document was created using an electronic medical record system with [employer] dictation system. Although this document has been carefully reviewed, there may still be some phonetic and typographical errors. These areas are purely typographical due to imperfections of the software programs, and do not reflect any compromise in the patient's medical care. Condition at Discharge: Guarded Final Diagnosis/Problems List Metabolic encephalopathy secondary to narcotic use and hypercarbic respiratory failure Secondary Diagnosis: -acute hypercarbic respiratory failure -metabolic/toxic encephalopathy secondary to prescribed narcotics -COPD with exacerbation -morbid obesity -acute on chronic diastolic heart failure -primary hypertension Discharge Disposition: Home Discharge Instruct/Medications Diet: Consistent carbohydrate, Cardiac 2g Na,low cholest Activity: No Restrictions, As Tolerated Follow Up/Referral: Discharge Clinic in one week PCP at next earliest appointment Medications: Continue all previous home medications including Lasix, metoprolol Symbicort one puff b.i.d. Prednisone 40 mg p.o. daily x5 days 36 Discharge Statement: "Patient was advised to return to the ER or call 911 if any headaches, dizziness, shortness of breath, chest pain, abdominal pain, bleeding, fevers, or worsening of medical condition. Patient was counseled about treatment plan, medications, possible side effects, patientverbalized understanding. All questions were answered to the best of my ability. This discharge took greater then 30 minutes in planning, reviewing documentation, counseling the patient, and discussing with other team members." DME: Diagnosis: COPD ASSESSMENT ASSESSMENT Assessment Metabolic encephalopathy secondary to narcotic use and hypercarbic respiratory failure Date of Service: Jun 13, 2024 Billing Provider: NAV ARMENDARIZ NP Common Visit Codes: [id number] DISCH DAY >30min NAV ARMENDARIZ NP Jun 13, 2024 16:20
== END 2024-06-13 18:20 | disposition home or self-care (01) | DRG 91 ==
LOC: ER 01:21 → EDBD 01:21 → TELE 04:06 → TELE-E-ADS 22:00
PROVIDERS: ADMIT Nurse Practitioner Acute Care; ATTEND Nurse Practitioner Acute Care
PROC: 5A09357 Assistance with Respiratory Ventilation, Less than 24 Consecutive Hours, Continuous Positive Airway Pressure (ICD-10-PCS; principal; 2024-06-11)
PROC: 5A09357 Assistance with Respiratory Ventilation, Less than 24 Consecutive Hours, Continuous Positive Airway Pressure (ICD-10-PCS; 2024-06-12)
DX: G92.8 Other toxic encephalopathy (principal); I50.33 Acute on chronic diastolic (congestive) heart failure; J96.02 Acute respiratory failure with hypercapnia; J96.01 Acute respiratory failure with hypoxia; J44.1 Chronic obstructive pulmonary disease with (acute) exacerbation; E87.29 Other acidosis; Z68.42 Body mass index [BMI] 45.0-49.9, adult; I11.0 Hypertensive heart disease with heart failure; E66.01 Morbid (severe) obesity due to excess calories; E78.5 Hyperlipidemia, unspecified; T40.605A Adverse effect of unspecified narcotics, initial encounter; Z79.899 Other long term (current) drug therapy; Y92.89 Other specified places as the place of occurrence of the external cause
CPT/HCPCS: 36415; 36600; 71045; 80048; 80053; 81001; 82805; 83735; 83880; 84443; 84484; 85025; 87426; 87804; 93005; 93306; 93970; 94640; 94660; 97163; 99291; G0378